=== PATIENT | male | born 1995 | race Caucasian/White ===

== ENCOUNTER 2017-02-18 23:15 | Emergency (ER) | payer BC ==
[2017-02-18 23:26] VITALS: TEMP 98.4
--- NOTE | 2017-02-18 23:28 | CPEKG ---
Heart Rate: 76 RR Interval: 789 P-R Interval: 128 QRSD Interval: 92 QT Interval: 356 QTC Interval: 401 P Brock: 56 QRS Brock: 20 T Wave Brock: 24 EKG Severity - NORMAL ECG - EKG Impression: SINUS RHYTHM Electronically Signed By: Cathy Rowan 19-Feb-2017 03:25:42
--- NOTE | 2017-02-18 23:39 | EDPHY ---
H & P Stated Complaint: PT FAINTED, +LOC FOR 10-15 SECONDS, NOW HAS HORNER/NAUSEA/ DIZZINESS. Time Seen by Provider: 02/18/17 23:21 HPI/ROS: CC: lightheaded on and off x 3 days HPI: This 21-year-old male with no significant past medical history presents to the emergency department [facility] with his girlfriend complaining that he has felt dizzy on and off over the last 3 days. He is originally from [place] but is a student here at [employer]. Four days ago he flew to [place] to visit his girlfriend's family. The morning after the flight he woke up with a headache at about 9:00 a.m.. He thought maybe he was dehydrated. He states the headache was 3/10. An hour later as they were riding in a golf cart go to breakfast he playfully jumped off the cart not realizing how fast it was going. He rolled on the ground and sustained an abrasion to his left elbow and left hip. He did not hit his head or lose consciousness. When they got to the restaurant he went into the bathroom to clean off his elbow. His girlfriend came in to assist and then as he turned to leave the restroom he felt woozy. He had blurred vision and felt a buzz throughout his body. He then fell to the ground and was "out of it" for the next 15-30 seconds according to his girlfriend. He did not hit his head at this time either. When he came to he felt disoriented for about a minute. His headache lasted the rest of the day and he felt slightly nauseated. The lightheadedness came in waves. He had no chest pain or palpitations, no recent illness, no ear pain, sore throat, chest pain or abdominal pain. He has had no constipation, diarrhea or dysuria. He states that occasionally he will get a sharp pain on either side of his lower chest but this is been going on for about 2 years. It is a mild discomfort and only lasts 1-2 seconds. He did not have this on the day of this episode. He has an occasional alcoholic beverage and prior to the incident he had not had alcohol since Jolynn. After the incident he had 1 beer that evening. He used marijuana over a month and a half ago but none since. He denies any other drug use. The patient is a cross-country runner, he runs track, he plays soccer and also participates in cycling. There is no family history of coronary artery disease or congenital heart problems. REVIEW OF SYSTEMS: Constitutional: No fever, no chills. Eyes: No discharge. ENT: No sore throat. Respiratory: No cough, no shortness of breath. Cardiac: See HPI. Gastrointestinal: No abdominal pain, no vomiting. Genitourinary: No hematuria. Musculoskeletal: No back pain. Skin: SEE HPI. Neurological: SEE HPI. 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 - Family History Significant Family History: Cancer - Social History Smoking Status: Never smoked Alcohol Use: Rarely Drug Use: Marijuana Additional Social History: Student at ; from [place] originally; has a 17 y/o brother and a 3 year old sister. - Physical Exam Exam: General Appearance: Alert, no distress, anxious. Eyes: Pupils equal and round no pallor or injection. ENT, Mouth: Mucous membranes are moist. No erythema or exudates. Respiratory: There are no retractions, lungs are clear to auscultation. Cardiovascular: Regular rate and rhythm. No murmurs, gallops or rubs. Gastrointestinal: Abdomen is soft and nontender, no masses, bowel sounds normal. Neurological: Awake and alert, sensory and motor exams grossly normal. Skin: Warm and dry. Approx 7x3cm abrasion over left olecranon process with surrounding erythema. No discharge, no red streaks. Mild STS. Approximately 10.5cm abrasion over left lateral hip without surrounding erythema. No discharge. No red streaks. Musculoskeletal: Neck is supple nontender. Extremities are symmetrical, full range of motion. Psychiatric: Patient is oriented X 3, there is no agitation. DIFFERENTIAL DIAGNOSIS: After history and physical exam differential diagnosis was considered for but not limited to: ICH, vertigo, inner ear disturbance, sinusitis, orthostatic syncope, dehydration, cardiac arrhythmia, valve disorder , electroltye imbalance, blood phobia, ETOH use, drug use, Constitutional: Initial Vital Signs Temperature (C) 98.4 F 02/18/17 23:24 Heart Rate 80 02/18/17 23:24 Respiratory Rate 16 02/18/17 23:24 Blood Pressure 162/85 H 02/18/17 23:24 O2 Sat (%) 94 02/18/17 23:24 O2 Delivery Mode Room Air Allergies/Adverse Reactions: No Known Allergies Allergy (Unverified 02/18/17 23:24) Home Medications: Medication Instructions Recorded Cephalexin [Keflex (*)] 500 mg PO Q6H #28 cap 02/19/17 Medical Decision Making - Diagnostics EKG Interpretation: NSR, HR 76, no ischemic changes, nml intervals. Imaging Results: Imaging Impressions Head CT 02/18/17 23:25 Impression: Normal brain. No intracranial hemorrhage or mass. Findings discussed with Emergency Department physician, Cathy Rowan DO at 02/18/2017 23:49. ED Course/Re-evaluation: The patient was seen and examined, vital signs reviewed. Orthostatic vital signs were normal x2. EKG was normal. Head CT was normal. CBC, comprehensive metabolic panel, UA and urine drug screen were all within normal limits. The patient was reassured. He was counseled on wound care for the abrasions on his elbow and his left hip. In he declined an x-ray of his left elbow. He declined IV fluids. He will push fluids at home. He will rest. He will follow up with the [facility] and discuss whether a echocardiogram is indicated. He was given a copy of all his tests to take with him. He will return to the emergency room sooner if any further problems or concerns. He was advised to also obtain from any alcohol or marijuana products. - Data Points Laboratory Results: Laboratory Results 02/18/17 23:40 02/18/17 23:40 02/19/17 02/18/17 02/18/17 00:00 23:40 23:40 WBC 7.57 10^3/uL 10^3/uL (3.80-9.50) RBC 5.48 10^6/uL 10^6/uL (4.40-6.38) Hgb 16.1 g/dL g/dL (13.7-17.5) Hct 46.8 % % (40.0-51.0) MCV 85.4 fL fL (81.5-99.8) MCH 29.4 pg pg (27.9-34.1) MCHC 34.4 g/dL g/dL (32.4-36.7) RDW 11.9 % % (11.5-15.2) Plt Count 271 10^3/uL 10^3/uL (150-400) MPV 10.2 fL fL (8.7-11.7) Neut % (Auto) 50.8 % % (39.3-74.2) Lymph % (Auto) 36.9 % % (15.0-45.0) Humphreys % (Auto) 8.9 % % (4.5-13.0) Eos % (Auto) 2.4 % % (0.6-7.6) Baso % (Auto) 0.7 % % (0.3-1.7) Nucleat RBC Rel Count 0.0 % % (0.0-0.2) Absolute Neuts (auto) 3.86 10^3/uL 10^3/uL (1.70-6.50) Absolute Lymphs (auto) 2.79 10^3/uL 10^3/uL (1.00-3.00) Absolute Monos (auto) 0.67 10^3/uL 10^3/uL (0.30-0.80) Absolute Eos (auto) 0.18 10^3/uL 10^3/uL (0.03-0.40) Absolute Basos (auto) 0.05 10^3/uL 10^3/uL (0.02-0.10) Absolute Nucleated RBC 0.00 10^3/uL 10^3/uL (0-0.01) Immature Gran % 0.3 % % (0.0-1.1) Immature Gran # 0.02 10^3/uL 10^3/uL (0.00-0.10) Sodium 143 mEq/L mEq/L (135-145) Potassium 4.0 mEq/L mEq/L (3.5-5.2) Chloride 100 mEq/L mEq/L (97-110) Carbon Dioxide 27 mEq/l mEq/l (22-31) Anion Gap 16 mEq/L mEq/L (8-16) BUN 15 mg/dL mg/dL (7-23) Creatinine 1.0 mg/dL mg/dL (0.7-1.3) Estimated GFR > 60 Glucose 102 mg/dL H mg/dL (70-100) Calcium 9.7 mg/dL mg/dL (8.5-10.4) Magnesium 1.9 mg/dL mg/dL (1.6-2.3) Total Bilirubin 1.2 mg/dL mg/dL (0.1-1.4) Conjugated Bilirubin 0.1 mg/dL mg/dL (0.0-0.5) Unconjugated Bilirubin 1.1 mg/dL mg/dL (0.0-1.1) AST 27 IU/L IU/L (17-59) ALT 31 IU/L IU/L (21-72) Alkaline Phosphatase 81 IU/L IU/L (38-126) Total Protein 7.8 g/dL g/dL (6.3-8.2) Albumin 4.3 g/dL g/dL (3.5-5.0) Urine Color YELLOW Urine Appearance CLEAR Urine pH 7.0 (5.0-7.5) Ur Specific Laton 1.010 (1.002-1.030) Urine Protein NEGATIVE (NEGATIVE) Urine Ketones NEGATIVE (NEGATIVE) Urine Blood NEGATIVE (NEGATIVE) Urine Nitrate NEGATIVE (NEGATIVE) Urine Bilirubin NEGATIVE (NEGATIVE) Urine Urobilinogen 0.2 EU EU (0.2-1.0) Ur Leukocyte Esterase NEGATIVE (NEGATIVE) Urine Glucose NEGATIVE (NEGATIVE) Urine Opiates Screen NEGATIVE (NEGATIVE) Urine Barbiturates NEGATIVE (NEGATIVE) Ur Phencyclidine Scrn NEGATIVE (NEGATIVE) Ur Amphetamine Screen NEGATIVE (NEGATIVE) U Benzodiazepines Scrn NEGATIVE (NEGATIVE) Urine Cocaine Screen NEGATIVE (NEGATIVE) U Marijuana (THC) Screen NEGATIVE (NEGATIVE) Ethyl Alcohol < 10 mg/dL mg/dL (0-10) Departure - Departure Disposition: Home, Routine, Self-Care Clinical Impression: Abrasion of elbow, left, Abrasion of hip, left, Episodic lightheadedness Condition: Good Instructions: Cephalexin (By mouth), Abrasion (ED), Near Syncope (ED), Lightheadedness (ED), Dizziness (ED) Additional Instructions: Follow up with your doctor at . Take all the test results done in the ER with you to your appointment. Ask if they think an echocardiogram (ultrasound of your heart) is indicated. Rest, drink plenty of fluids. Do not drink alcohol or use marijuana. Start the antibiotic if your elbow wound looks like it is becoming infected as we discussed. Return to the ER if any further problems or concerns. Referrals: Patient,NotPresent [Primary Care Provider] - 5-7 days, call for appt. Prescriptions: Cephalexin [Keflex (*)] 500 mg PO Q6H #28 cap
[2017-02-18 23:43] LABS: PLATELET COUNT 271 10^3/uL (150-400)
[2017-02-19 00:46] VITALS: BP 135/77; PULSE 78; RESP 16; O2SAT 95
== END 2017-02-19 00:53 | disposition home or self-care (01) ==
LOC: CED 23:15
DX: S50.312A Abrasion of left elbow, initial encounter (principal); S70.212A Abrasion, left hip, initial encounter; R42 Dizziness and giddiness; W19.XXXA Unspecified fall, initial encounter
CPT/HCPCS: 70450-PO; 80048-PO; 80076-PO; 80307-PO; 81003-PO; 83735-PO; 85025-PO; G0480

== ENCOUNTER 2018-02-15 01:40 | Emergency (ER) | payer BC ==
--- NOTE | 2018-02-15 03:04 | EDPHY ---
H & P Stated Complaint: back of head pain r/t fell today Time Seen by Provider: 02/15/18 02:45 HPI/ROS: HPI The patient presents with fall, hitting his head which occurred just prior to arrival, he is brought in by paramedics. The patient was at a friend's house, had used marijuana, was sitting on the couch and next he remembers awoke on the ground. He believes he hit his head, he is not sure on what. He has a headache which is frontal, 6/10, aching in nature and associated with nausea. He does not have any neck pain, numbness or tingling of his arms or legs. He does not have any vomiting. He does not have any past medical problems. REVIEW OF SYSTEMS 10 systems were reviewed and negative with the exception of the elements mentioned in the history of present illness. PMHx: Healthy Soc Hx: College student, just arrived today from [place] of via airplane, marijuana use PHYSICAL General Appearance: Alert, no distress Head: There is mild tenderness to the posterior occiput with no hematoma Eyes: Pupils equal and round no pallor or injection ENT, Mouth: Mucous membranes moist Respiratory: There are no retractions, lungs are clear to auscultation Cardiovascular: Regular rate and rhythm Gastrointestinal: Abdomen is soft and non-tender, no masses, bowel sounds normal Neurological: A&O, cranial nerves 2-12 intact, no pronator drift Skin: Warm and dry, no rashes Musculoskeletal: Neck is supple non tender Extremities: symmetrical, full range of motion Psychiatric: Patient is oriented X 3, there is no agitation Source: Patient, EMS Exam Limitations: Clinical condition - Personal History Current Tetanus/Diphtheria Vaccine: Yes Tetanus Vaccine Date: < 10 yeaes - Medical/Surgical History Hx Asthma: No Hx Chronic Respiratory Disease: No Hx Diabetes: No Hx Cardiac Disease: No Hx Renal Disease: No Hx Cirrhosis: No Hx Alcoholism: No Hx HIV/AIDS: No Hx Splenectomy or Spleen Trauma: No Other PMH: BILATERAL CALF FASCIOTOMIES FOR COMPARTMENT SYNDROME. - Social History Smoking Status: Never smoked Constitutional: Initial Vital Signs Temperature (C) 36.9 C 02/15/18 01:55 Heart Rate 84 02/15/18 01:55 Respiratory Rate 18 02/15/18 01:55 Blood Pressure 163/82 H 02/15/18 01:55 O2 Sat (%) 96 02/15/18 01:55 O2 Delivery Mode Room Air Allergies/Adverse Reactions: No Known Allergies Allergy (Unverified 02/15/18 01:51) Home Medications: Medication Instructions Recorded Cephalexin [Keflex (*)] 500 mg PO Q6H #28 cap 02/19/17 Medical Decision Making - Diagnostics EKG Interpretation: EKG: Complete interpretation has been separately recorded in the [email or web address] archive. Summary impression: Normal sinus rhythm Imaging Results: CT head without contrast is unremarkable for any acute injury, discussed with Dr. Mohan radiologist crayon sawyer. Differential Diagnosis: 22-year-old male brought in by ambulance after fall with ALOC, hitting his head , in the setting of marijuana use. Here, he has a headache, because of this he will require CT scan to evaluate for intracranial hemorrhage. He has no neurologic deficit. I will also obtain EKG to evaluate for arrhythmia given that syncope is on my differential. CT scan of brain without contrast and EKG are both unremarkable. I discussed the test results with the patient. I feel he may be suffering from a mild concussion and have explained this to him. He will be discharged home at this point. Departure - Departure Disposition: Home, Routine, Self-Care Clinical Impression: Fall, Head injury Condition: Good Instructions: Head Injury (ED) Additional Instructions: Please return to the emergency department if you are worse in any way. I suspect you may have a concussion. Because of this you should rest until your feeling better and avoid any contact sports or heavy activity. If you have a headache, you should take ibuprofen 400 mg every 6 hr. If you have any symptoms after 2 days, you should follow up at [facility]. Referrals: [facility] [Clinic] - As per Instructions
[2018-02-15 03:59] VITALS: BP 155/71
--- NOTE | 2018-02-16 05:29 | CPEKG ---
Test Reason : OPEN Blood Pressure : / mmHG Vent. Rate : 091 BPM Atrial Rate : 092 BPM P-R Int : 119 ms QRS Dur : 098 ms QT Int : 341 ms P-R-T Axes : 058 000 003 degrees QTc Int : 420 ms Sinus rhythm Probable left atrial enlargement Abnormal inferior Q waves Borderline T wave abnormalities Confirmed by Rea Blanco ([id number]) on 02/16/2018 5:29:31 AM Referred By: Confirmed By:Rea Blanco
== END 2018-02-15 04:10 | disposition home or self-care (01) ==
LOC: EDUNIT#
DX: S09.90XA Unspecified injury of head, initial encounter (principal); W08.XXXA Fall from other furniture, initial encounter; Y92.019 Unspecified place in single-family (private) house as the place of occurrence of the external cause